=== PATIENT | male | born 1950 | race Caucasian/White ===

== ENCOUNTER 2020-02-17 19:23 | Emergency (ER) | payer MEDICARE, OTHER, SELFPAY ==
[~2020-02-17] VITALS: Ht 188 cm; Wt 106.4 kg
[2020-02-17] MEDS ORDERED: FILTER 0.22 MICRON IV ONE (20:30)
[2020-02-17] MEDS ORDERED: BAMLANIVIMAB 700 MG in SODIUM CHLORIDE 0.9% 180 ML IVPB ONE (20:30)
--- NOTE | 2020-02-17 21:55 | NUR ---
Rounding on pt. Pt has no complaints. No sign of medication reactions with bamlanivimab. VSS. WCTM.
--- NOTE | 2020-02-17 22:53 | NUR ---
VSS. Pt reporting no adverse reactions to medication. Observation period starting at 2245. WCTM.
[2020-02-18 00:06] VITALS: BP 150/83
--- NOTE | 2020-02-18 00:07 | NUR ---
VSS. PT HAS NO SIGNS OF ADVERSE REACTION TO THE MEDICATION. AMBULATORY. DISCHARGE INSTRUCTIONS REVIEWED. NO QUESTIONS AT THIS TIME. PT HAS PULSE OX AT HOME TO MONITOR O2 SAT.
== END 2020-02-18 00:23 | disposition home or self-care (01) ==
LOC: ED 21:54
DX: U07.1 COVID-19 (principal); J06.9 Acute upper respiratory infection, unspecified; R94.31 Abnormal electrocardiogram [ECG] [EKG]; E11.9 Type 2 diabetes mellitus without complications
CPT/HCPCS: 93005; 99284; J7050; M0239; Q0239; 96365; 96366